=== PATIENT | male | born 1950 | race African-American/Black ===

== ENCOUNTER 2018-05-24 14:24 | Emergency (ER) | payer MEDICARE, MEDICAID ==
[~2018-05-24] VITALS: Ht 177.8 cm; Wt 75.7 kg
[2018-05-24 14:37] VITALS: BP 207/105
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
[2018-05-24] MEDS ORDERED: Tylenol #3 tab (300mg/30mg) ORAL ONE (15:15)
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
[2018-05-24 15:50] VITALS: BP 177/88
--- NOTE | 2018-05-24 17:09 | Diagnostic Imaging Report ---
Indication: Pain status post injury Technique: Continuous helical CT scanning of the head was performed utilizing automated exposure control without intravenous contrast material. Axial and coronal reconstructions were obtained. Comparison: None CT dose (combined CT head and cervical spine): Total DLP 1823.59 mGycm; CTDI vol 70.38,15.65 mGy Findings: There is no acute intracranial hemorrhage, mass effect or cortical edema. The ventricles, cisterns and sulci are prominent consistent with atrophy. Periventricular hypoattenuation is seen, a nonspecific finding. There are atherosclerotic vascular calcifications. Visualized mastoid air cells and paranasal sinuses are unremarkable. No focal lesions of the bony calvarium or soft tissues of the scalp are seen. IMPRESSION: No evidence of acute intracranial hemorrhage, mass effect or cortical edema. No acute skull fracture. Mild atrophy and nonspecific periventricular hypoattenuation suggestive of chronic ischemic microvascular changes. The CT scanner at [facility] is accredited by the [employer] and the scans are performed using protocols designed to limit radiation exposure to as low as reasonably achievable to attain images of sufficient resolution adequate for diagnostic evaluation.
--- NOTE | 2018-05-24 17:19 | Diagnostic Imaging Report ---
Indication: Pain status post injury Technique: CT cervical spine was performed utilizing automated exposure control without intravenous contrast material. Axial, sagittal coronal images were generated. CT dose (combined CT head cervical spine): Total DLP 1823.59 mGycm; CTDI vol 70.38,15.65 mGy Comparison: None Findings: No acute cervical spine fracture is identified. Cervical lordosis is maintained. There is no evidence of traumatic malalignment. There are multilevel discogenic degenerative changes of the cervical spine manifested by multilevel disc space narrowing, endplate sclerosis/cystic change, multilevel osteophytes as well as multilevel facet and uncovertebral joint hypertrophy. Overall findings are [id number]. Degenerative changes result in varying degrees of central canal stenosis which is overall mild as fluid attenuation is noted both anterior and posterior to the cord throughout the cervical spine. Bony foraminal narrowing appears moderate to severe on the left at C4-C5 and bilaterally at C5-C6. No abnormality is noted at the craniocervical junction. Thyroid is mildly heterogeneous without discrete nodule imaged lung apices are clear. There are atherosclerotic vascular calcifications. A dialysis catheter is partially visualized. IMPRESSION: Degenerative changes of the cervical spine without evidence of acute fracture. The CT scanner at [facility] is accredited by the [employer] and the scans are performed using protocols designed to limit radiation exposure to as low as reasonably achievable to attain images of sufficient resolution adequate for diagnostic evaluation.
[2018-05-24] MEDS ORDERED: TYLENOL EXTRA500 MG ORAL (17:54)
[2018-05-24] MEDS ORDERED: CYCLOBENZAPRIN7.5 MG ORAL (17:54)
[2018-05-24] MEDS ORDERED: Metoclopramide 10mg/10ml Liq ORAL ONE (18:00)
--- NOTE | 2018-05-24 18:16 | NUR ---
ED Nurse Note: pt was provided sandwich and juice per pt's request before taking Reglan.
[2018-05-24 18:20] VITALS: BP 168/52
--- NOTE | 2018-05-24 18:20 | NUR ---
ED Nurse Note: Pt cleared by health care Provider for discharge. DC instructions/prescription was given and explained to pt and verbalized understanding of teachings. All medical deviecs such as ID band removed. Pt is GARY [email or web address], ambulatory and left with all personal belongings. Addendum: 05/24/18 at 1824 by [email or web address] ED Nurse Note: Pt cleared by health care Provider for discharge. DC instructions/prescription was given and explained to pt and verbalized understanding of teachings. Pt refused to take off the ID band. Two nurses informed that all medical center representative including ID band have to removed prior to discharge. Pt refused. Pt is GARY cao, aleft with all personal belongings in his wheelchair.
--- NOTE | 2018-05-25 13:36 | Cardiology Report ---
APPROVED REPORT EKG Measurement Heart [id number] UT 200P70 [id number] Sinus rhythm with marked sinus arrhythmia Left axis deviation Voltage criteria for left ventricular hypertrophy Cannot rule out Septal infarct, age undetermined T wave abnormality, consider lateral ischemia Abnormal ECG
== END 2018-05-24 18:20 | disposition home or self-care (01) ==
LOC: EMR 14:42
DX: S16.1XXA Strain of muscle, fascia and tendon at neck level, initial encounter (principal); V43.52XA Car driver injured in collision with other type car in traffic accident, initial encounter; Y92.414 Local residential or business street as the place of occurrence of the external cause; R51 Headache; I12.0 Hypertensive chronic kidney disease with stage 5 chronic kidney disease or end stage renal disease; N18.6 End stage renal disease; Z99.2 Dependence on renal dialysis; Z88.8 Allergy status to other drugs, medicaments and biological substances
CPT/HCPCS: 70450; 72125; 93005; 99284